=== PATIENT | female | born 1945 | race Caucasian/White ===

== ENCOUNTER 2023-07-10 10:21 | Day surgery (SDC) | payer MEDICARE, OTHER ==
[~2023-07-10] VITALS: Ht 157.5 cm; Wt 63.1 kg
[2023-07-10] VITALS (10 sets, daily range): BP systolic 113–142; BP diastolic 56–87; PULSE 56–78; RESP 16–19; TEMP 97.9; O2SAT 91–98
[2023-07-10] MEDS ORDERED: LORazepam 0.5 MG tablet PO PRN (10:45)
[2023-07-10] MEDS ORDERED: normal saline 1,000 ML IV SCH (10:45)
[2023-07-10] MEDS ORDERED: diphenhydrAMINE 25mg capsule PO PRN (10:45)
[2023-07-10] MEDS ORDERED: nitroGLYCERIN 0.4mg SUBLingual tab SL PRN (10:45)
[2023-07-10] MEDS ORDERED: METO25TA6 PO (11:12)
[2023-07-10] MEDS ORDERED: ASPI-1265 PO (11:12)
[2023-07-10] MEDS ORDERED: ATOR40TA PO (11:12)
[2023-07-10] MEDS ORDERED: LORA-268 (11:12)
[2023-07-10 11:36] LABS: BASOPHILS % (AUTO) 0.7 % (0-1); EOSINOPHILS # (AUTO) 0.1 X10'3 (0-0.9); EOSINOPHILS % (AUTO) 1.4 % (0-6); HEMATOCRIT 44.5 % (35.0-45.0); HEMOGLOBIN 15.1 g/dl (12.0-16.0); LYMPHOCYTES # (AUTO) 1.6 X10'3 (1.1-4.8); LYMPHOCYTES % (AUTO) 26.3 % (21-51); MEAN CORPUSCULAR HEMOGLOBIN 31.3 PG (27.0-31.0); MEAN CORPUSCULAR HGB CONC 33.8 g/dL (33.0-36.5); MEAN CORPUSCULAR VOLUME 92.5 FL (78-98); MEAN PLATELET VOLUME 9.7 FL (7.4-10.4); MONOCYTES # (AUTO) 0.4 X10'3 (0-0.9); NEUTROPHILS % (AUTO) 64.6 % (42-75); PLATELET COUNT 184 X10'3 (140-440); RED BLOOD COUNT 4.81 X10'6 (4.20-5.60); RED CELL DISTRIBUTION WIDTH 13.2 % (11.5-14.5); WHITE BLOOD COUNT 6.1 X10'3 (4.5-11.0)
[2023-07-10] MEDS ORDERED: midazolam 1 mg/ML 2ml injection ONE ×2 (11:36→12:32)
[2023-07-10] MEDS ORDERED: iohexol 350 MG/ML 50ML vial IV ONE (11:37)
[2023-07-10] MEDS ORDERED: LIDOcaine 1% (10mg/ml)w/preservative inj. 20ml MDV ONE (11:37)
[2023-07-10] MEDS ORDERED: fentaNYL/PF 50MCG/1 ML 2ML syringe ONE (11:37)
[2023-07-10] MEDS ORDERED: iohexol 350MG/ML 100ml bottle IV ONE ×2 (11:37→13:01)
[2023-07-10 11:44] LABS: ANION GAP 10 (8-16); BLOOD UREA NITROGEN 11 MG/DL (7-18); BUN/CREATININE RATIO 15.7 (10.0-20.0); CALCIUM 9.4 MG/DL (8.5-10.1); CHLORIDE 103 MMOL/L (99-107); GLUCOSE 92 MG/DL (70-104); SODIUM 139 MMOL/L (135-145); TOTAL CARBON DIOXIDE 25.8 MMOL/L (24-32); eCRCL 53 ML/MIN; eGFR 81 ML/MIN
[2023-07-10 11:49] LABS: APTT 25 SECONDS (22-32); PROTHROMBIN TIME 10.5 SECONDS (9.0-12.0)
[2023-07-10] MEDS ORDERED: proCHLORperazine 10 MG/2 ml inj ONE (12:32)
[2023-07-10 13:32] LABS: ISTAT HGB ART 13.6 g/dl (12.0-16.0); ISTAT Hct ART 40 %PCV (35-45); ISTAT O2 SATURATION ARTERIAL 98 % (95-98); ISTAT SOURCE ART
[2023-07-10] MEDS ORDERED: normal saline 1000ml 1,000 ML IV SCH (14:15)
[2023-07-10] MEDS ORDERED: HYDROcodone/acetaminophen 10/325mg tab PO PRN (14:15)
[2023-07-10] MEDS ORDERED: OXAZEpam 15mg capsule PO PRN (14:15)
[2023-07-10] MEDS ORDERED: ondansetron/PF 4mg/2ml inj IV PRN (14:15)
[2023-07-10] MEDS ORDERED: proCHLORperazine 10 MG/2 ml inj IV PRN (14:15)
[2023-07-10] MEDS ORDERED: HYDROcodone/acetaminophen 5mg/325mg tablet PO PRN (14:15)
[2023-07-10 15:16] LABS: ISTAT HGB MIX 13.6 g/dl (12.0-16.0); ISTAT Hct MIX 40 %PCV (35-45); ISTAT O2 SATURATION MIX VENOUS 77 % (60-80); ISTAT SOURCE VEN
== END 2023-07-10 19:20 | disposition home or self-care (01) ==
LOC: SSTAY O 10:21
PROVIDERS: ATTEND Internal Medicine Cardiovascular Disease
DX: R94.39 Abnormal result of other cardiovascular function study (principal); I25.119 Atherosclerotic heart disease of native coronary artery with unspecified angina pectoris; I35.0 Nonrheumatic aortic (valve) stenosis; I27.20 Pulmonary hypertension, unspecified; I10 Essential (primary) hypertension; G24.3 Spasmodic torticollis; E78.5 Hyperlipidemia, unspecified; J44.9 Chronic obstructive pulmonary disease, unspecified; M35.00 Sjogren syndrome, unspecified; M19.90 Unspecified osteoarthritis, unspecified site; Z90.710 Acquired absence of both cervix and uterus; Z98.41 Cataract extraction status, right eye; Z98.42 Cataract extraction status, left eye; Z87.891 Personal history of nicotine dependence; Z88.2 Allergy status to sulfonamides; Z88.8 Allergy status to other drugs, medicaments and biological substances; Z79.899 Other long term (current) drug therapy; Z79.01 Long term (current) use of anticoagulants; Z95.1 Presence of aortocoronary bypass graft
CPT/HCPCS: 36415; 71045; 80048; 82803; 85014; 85025; 85610; 85730; 93005; 93461; 93567; 99152; 99153; J0780; J1644; J2250; J3010; J3490; J7030; Q0163; Q9967; A6258; C1729; C1751; C1760; C1769

== ENCOUNTER → 2023-08-09 | Outpatient (CLI) | payer MEDICARE, OTHER ==
[~2023-08-09] MED LIST: ASPI-1265 PO; ATOR40TA PO; LORA-268; METO25TA6 PO
== END | disposition home or self-care (01) ==
LOC: CARD DIAG 10:45
PROVIDERS: ATTEND Internal Medicine Cardiovascular Disease
DX: I08.3 Combined rheumatic disorders of mitral, aortic and tricuspid valves (principal); I25.10 Atherosclerotic heart disease of native coronary artery without angina pectoris
CPT/HCPCS: 93306

== ENCOUNTER 2023-08-30 13:05 | Outpatient (CLI) | payer MEDICARE, OTHER ==
[2023-08-30 14:06] LABS: BASOPHILS # (AUTO) 0.1 X10'3 (0-0.2); BASOPHILS % (AUTO) 0.9 % (0-1); EOSINOPHILS # (AUTO) 0.1 X10'3 (0-0.9); EOSINOPHILS % (AUTO) 1.7 % (0-6); HEMATOCRIT 44.3 % (35.0-45.0); HEMOGLOBIN 14.9 g/dl (12.0-16.0); LYMPHOCYTES # (AUTO) 1.9 X10'3 (1.1-4.8); LYMPHOCYTES % (AUTO) 32.3 % (21-51); MEAN CORPUSCULAR HEMOGLOBIN 31.4 PG (27.0-31.0); MEAN CORPUSCULAR HGB CONC 33.7 g/dL (33.0-36.5); MEAN CORPUSCULAR VOLUME 93.2 FL (78-98); MEAN PLATELET VOLUME 8.9 FL (7.4-10.4); MONOCYTES # (AUTO) 0.4 X10'3 (0-0.9); MONOCYTES % (AUTO) 7.3 % (2-12); NEUTROPHILS # (AUTO) 3.4 X10'3 (1.8-7.7); NEUTROPHILS % (AUTO) 57.8 % (42-75); PLATELET COUNT 180 X10'3 (140-440); RED BLOOD COUNT 4.75 X10'6 (4.20-5.60); RED CELL DISTRIBUTION WIDTH 13.5 % (11.5-14.5); WHITE BLOOD COUNT 5.8 X10'3 (4.5-11.0)
[2023-08-30 14:12] LABS: APTT 26 SECONDS (22-32); PROTHROMBIN TIME 10.6 SECONDS (9.0-12.0)
[2023-08-30 14:14] LABS: ALANINE AMINOTRANSFERASE 48 U/L (12-78); ALBUMIN 3.7 G/DL (3.4-5.0); ALBUMIN/GLOBULIN RATIO 0.9 (1.1-1.5); ALKALINE PHOSPHATASE 63 IU/L (46-116); ANION GAP 6 (8-16); ASPARTATE AMINO TRANSFERASE 38 U/L (10-37); BILIRUBIN,TOTAL 0.5 MG/DL (0.1-1.0); BLOOD UREA NITROGEN 19 MG/DL (7-18); BUN/CREATININE RATIO 24.1 (10.0-20.0); CALCIUM 9.2 MG/DL (8.5-10.1); CHLORIDE 105 MMOL/L (99-107); CREATININE 0.79 MG/DL (0.40-0.90); GLUCOSE 102 MG/DL (70-104); POTASSIUM 4.1 MMOL/L (3.5-5.1); SODIUM 140 MMOL/L (135-145); eGFR 71 ML/MIN
[2023-08-30 14:22] LABS: PRO BRAIN NATRIURETIC PEPTIDE 335 PG/ML (0-450)
[2023-08-30] MEDS ORDERED: IODIXANOL 320 MG/ML INFUS..BTL 100ML IV ONE (14:24)
== END 2023-08-30 23:59 | disposition home or self-care (01) ==
LOC: RAD 13:05
PROVIDERS: ATTEND Internal Medicine Cardiovascular Disease
DX: K44.9 Diaphragmatic hernia without obstruction or gangrene (principal); I35.0 Nonrheumatic aortic (valve) stenosis; R06.02 Shortness of breath; I70.0 Atherosclerosis of aorta; I51.7 Cardiomegaly; Z95.1 Presence of aortocoronary bypass graft; J98.4 Other disorders of lung; K76.89 Other specified diseases of liver; K57.30 Diverticulosis of large intestine without perforation or abscess without bleeding; M47.819 Spondylosis without myelopathy or radiculopathy, site unspecified; J47.9 Bronchiectasis, uncomplicated; I65.23 Occlusion and stenosis of bilateral carotid arteries; Z90.49 Acquired absence of other specified parts of digestive tract
CPT/HCPCS: 36415; 71275; 74174; 75572; 80053; 83880; 85025; 85610; 85730; 93880; 94010; 94727; 94729; J3490; Q9967

== ENCOUNTER 2024-01-03 06:49 | Inpatient (IN) | payer MEDICARE, OTHER ==
[2024-01-02 10:20] LABS: BILIRUBIN,URINE NEGATIVE (Neg); CLARITY,URINE CLEAR (Clear); COLOR,URINE YELLOW (Yellow); GLUCOSE, URINE NEGATIVE (Neg); KETONES,URINE NEGATIVE (Neg); LEUKOCYTE ESTERASE ,URINE NEGATIVE (Neg); NITRITES, URINE NEGATIVE (Neg); OCCULT BLOOD,URINE TRACE-INTACT (Neg); PH,URINE 5.5 (4.8-8.0); PROTEIN,URINE NEGATIVE (Neg); UROBILINOGEN,URINE 0.2 E.U/dL (0.2-1.0)
[2024-01-02 10:21] LABS: UA COLLECTION TYPE CLN CATCH MIDSTREAM
[2024-01-02 10:28] LABS: BASOPHILS % (AUTO) 0.6 % (0-1); EOSINOPHILS # (AUTO) 0.1 X10'3 (0-0.9); EOSINOPHILS % (AUTO) 2.1 % (0-6); LYMPHOCYTES # (AUTO) 1.4 X10'3 (1.1-4.8); LYMPHOCYTES % (AUTO) 22.1 % (21-51); MEAN CORPUSCULAR HEMOGLOBIN 30.6 PG (27.0-31.0); MEAN CORPUSCULAR HGB CONC 33.1 g/dL (33.0-36.5); MEAN CORPUSCULAR VOLUME 92.3 FL (78-98); MEAN PLATELET VOLUME 9.3 FL (7.4-10.4); MONOCYTES # (AUTO) 0.5 X10'3 (0-0.9); MONOCYTES % (AUTO) 7.3 % (2-12); NEUTROPHILS # (AUTO) 4.3 X10'3 (1.8-7.7); NEUTROPHILS % (AUTO) 67.9 % (42-75); PRE OP HEMATOCRIT 43.3 % (35.0-45.0); PRE OP HEMOGLOBIN 14.3 g/dL (12.0-16.0); PRE OP PLATELET COUNT 157 X10'3 (140-440); PRE OP WHITE BLOOD COUNT 6.4 10'3 (4.8-10.8); RED BLOOD COUNT 4.69 X10'6 (4.20-5.60); RED CELL DISTRIBUTION WIDTH 14.3 % (11.5-14.5)
[2024-01-02 10:34] LABS: PRE OP PROTIME 10.4 SECONDS (9.0-12.0)
[2024-01-02 10:39] LABS: ALBUMIN 3.6 G/DL (3.4-5.0); ALBUMIN/GLOBULIN RATIO 0.9 (1.1-1.5); ALKALINE PHOSPHATASE 64 IU/L (46-116); BLOOD UREA NITROGEN 16 MG/DL (7-18); BUN/CREATININE RATIO 21.1 (10.0-20.0); CALCIUM 8.9 MG/DL (8.5-10.1); CHLORIDE 105 MMOL/L (99-107); CREATININE 0.76 MG/DL (0.40-0.90); PRE OP ALT 37 U/L (30-65); PRE OP ANION GAP 7 (8-16); PRE OP AST 32 U/L (10-37); PRE OP BILIRUB, TOTAL 0.5 MG/DL (0.0-1.0); PRE OP GLUCOSE 100 MG/DL (70-104); PRE OP POTASSIUM 3.9 MMOL/L (3.4-5.1); PRE OP SODIUM 139 MMOL/L (135-145); TOTAL CARBON DIOXIDE 27.3 MMOL/L (24-32); TOTAL PROTEIN 7.8 G/DL (6.4-8.2); eGFR 74 ML/MIN
[2024-01-02 10:45] LABS: BACTERIA,URINE FEW /HPF (Neg); SQUAMOUS EPITHELIAL CELL,UR FEW /LPF (FEW)
[2024-01-02 10:50] LABS: RBC,URINE 0-2 /HPF (0-2); WBC,URINE 0-4 /HPF (0-4)
[2024-01-02 13:19] LABS: THYROID STIMULATING HORMONE 1.19 ulU/ml (0.34-4.50)
[2024-01-03] VITALS (12 sets, daily range): BP systolic 118–146; BP diastolic 58–73; PULSE 60–96; RESP 12–26; TEMP 97.4; O2SAT 96–100
[~2024-01-03] VITALS: Ht 157.5 cm; Wt 66.2 kg
[2024-01-03] MEDS: cefazolin 2gm/D5W 100mL 100 ML IV ONE (05:30)
[~2024-01-03 06:49] MED LIST changes: +ASPI-1071 PO; -ASPI-1265 PO; -LORA-268
[2024-01-03] MEDS ORDERED: iohexol 300mg/ml 100ml inj. ONE (07:07)
[2024-01-03] MEDS: famotidine 20mg tablet PO ONE (08:47)
[2024-01-03] MEDS: ringers solution, lacted 1,000 ML IV SCH (08:47)
[2024-01-03] MEDS ORDERED: GADOTERATE MEGLUMINE 7.5 MMOL/15 ML VIAL IV ONE (12:42)
[2024-01-03] MEDS ORDERED: fentaNYL /PF 50mcg/ml 5ml ampule ONE (14:33)
[2024-01-03] MEDS ORDERED: midazolam 1 mg/ML 2ml injection ONE ×2 (14:33→14:52)
[2024-01-03] MEDS ORDERED: propofol inj 20 ML IV ONE (14:34)
[2024-01-03] MEDS: BUPIVAcaine/PF 2.5 mg/ml (0.25%) 30ml vial IJ ONE (15:09)
[2024-01-03] MEDS ORDERED: ePHEDrine 50MG/ML INJ. ONE (16:38)
[2024-01-03] MEDS ORDERED: rocuronium 10mg/ml inj IV ONE ×2 (16:38)
[2024-01-03] MEDS ORDERED: morphine 2 MG/ML inj. syringe IV PRN (17:20)
[2024-01-03] MEDS ORDERED: ondansetron/PF 4mg/2ml inj IV PRN (17:20)
[2024-01-03] MEDS ORDERED: proCHLORperazine 10 MG/2 ml inj IV PRN (17:20)
[2024-01-03] MEDS ORDERED: ringers solution, lacted 1,000 ML IV SCH (17:20)
[2024-01-03] MEDS ORDERED: meperidine/PF 25mg/ml syringe IV PRN ×2 (17:20)
[2024-01-03] MEDS ORDERED: morphine 4 MG/ML inj SYRINge IV PRN (17:20)
[2024-01-03] MEDS ORDERED: acetaminophen 1,000mg/100ml IV 100 ML IV ONE (17:39)
[2024-01-03] MEDS ORDERED: neostigmine methylsulfate 1 MG/ML 10ml vial ONE (17:57)
[2024-01-03] MEDS ORDERED: glycopyrrolate 0.2mg/ml inj ONE (17:57)
[2024-01-03] MEDS ORDERED: HYDROcodone/acetaminophen 10/325mg tab PO PRN (18:30)
[2024-01-03] MEDS ORDERED: albuterol 2.5 MG/3 ML nebule NEB PRN (18:30)
[2024-01-03] MEDS ORDERED: metoclopramide 5 mg/ml inj IV PRN (18:30)
[2024-01-03 18:54] LABS: ABG BASE EXCESS -2.7 mmol/L (-2.0-2.0); ABG HCO3 21.8 mmol/L (22.0-26.0); ABG OXYGEN SATURATION 96.2 % (94-97); ABG PCO2 (T) 35.9 mmHg (32.0-45.0); ABG PH (T) 7.398 (7.350-7.450); ABG PO2 (T) 78.3 mmHg (75.0-100.0); FCOHb 0.5 % (0.0-3.9); FHHb 3.8 % (0.0-5.0); FLOW 2 L/min; FMetHb 0.3 % (0.0-1.5); FO2Hb 95.4 % (94-97); MODE NASAL CANNULA; PATIENT TEMPERATURE 36.1; TOTAL HEMOGLOBIN 13.6 G/dl (12.0-16.0)
[2024-01-03] MEDS: meperidine/PF 25mg/ml syringe IV PRN (19:02)
[2024-01-03] MEDS: BUPIVACAINE liposomal/PF 13.3 MG/ML vial IM ONE (19:51)
[2024-01-03] MEDS: BUPIVAcaine 2.5mg/ml inj 50ml vial (contains preservative) ONE (19:51)
[2024-01-03] MEDS: DOCUMENT DATE & TIME OF BETA-BLOCKER PO ONE (19:51)
[2024-01-03] MEDS: potassium cl 20mEq in 1/2 NS 1,000 ML IV SCH (19:54)
[2024-01-03] MEDS: ketorolac trometh. 30mg/ml inj. IV SCH (19:54)
[2024-01-03] MEDS: morphine 4 MG/ML inj SYRINge IV PRN (20:31)
[2024-01-04] VITALS (22 sets, daily range): BP systolic 96–140; BP diastolic 46–67; PULSE 71–94; RESP 12–25; O2SAT 92–98
[2024-01-04] MEDS: ceFAZolin inj. 1,000 MG in dextrose 5%-water 50ml 50 ML IV SCH (00:14)
[2024-01-04 01:52] LABS: ALANINE AMINOTRANSFERASE 37 U/L (12-78); ALBUMIN/GLOBULIN RATIO 0.9 (1.1-1.5); ALKALINE PHOSPHATASE 56 IU/L (46-116); ANION GAP 9 (8-16); ASPARTATE AMINO TRANSFERASE 35 U/L (10-37); BILIRUBIN,TOTAL 0.8 MG/DL (0.1-1.0); BLOOD UREA NITROGEN 10 MG/DL (7-18); BUN/CREATININE RATIO 15.9 (10.0-20.0); CALCIUM 8.4 MG/DL (8.5-10.1); CHLORIDE 102 MMOL/L (99-107); CREATININE 0.63 MG/DL (0.40-0.90); GLUCOSE 160 MG/DL (70-104); MAGNESIUM 1.8 MG/DL (1.5-2.4); PHOSPHORUS 4.5 MG/DL (2.3-4.5); SODIUM 136 MMOL/L (135-145); TOTAL PROTEIN 6.5 G/DL (6.4-8.2); eCRCL 58 ML/MIN; eGFR > 90 ML/MIN
[2024-01-04 02:00] LABS: BASOPHILS % (AUTO) 0.2 % (0-1); EOSINOPHILS % (AUTO) 0 % (0-6); HEMOGLOBIN 12.2 g/dl (12.0-16.0); LYMPHOCYTES # (AUTO) 0.6 X10'3 (1.1-4.8); LYMPHOCYTES % (AUTO) 4.1 % (21-51); MEAN CORPUSCULAR HEMOGLOBIN 30.3 PG (27.0-31.0); MEAN CORPUSCULAR HGB CONC 32.9 g/dL (33.0-36.5); MEAN CORPUSCULAR VOLUME 91.9 FL (78-98); MEAN PLATELET VOLUME 8.9 FL (7.4-10.4); MONOCYTES # (AUTO) 0.6 X10'3 (0-0.9); MONOCYTES % (AUTO) 4.4 % (2-12); NEUTROPHILS # (AUTO) 12.4 X10'3 (1.8-7.7); NEUTROPHILS % (AUTO) 91.3 % (42-75); PLATELET COUNT 120 X10'3 (140-440); RED BLOOD COUNT 4.02 X10'6 (4.20-5.60); RED CELL DISTRIBUTION WIDTH 13.9 % (11.5-14.5); WHITE BLOOD COUNT 13.6 X10'3 (4.5-11.0)
[2024-01-04] MEDS: ondansetron/PF 4mg/2ml inj IV PRN (05:31)
[2024-01-04] MEDS ORDERED: atorvastatin 20mg tablet PO SCH (09:19)
[2024-01-04] MEDS ORDERED: HALLS - SOOTHE MENTHOL 1.8 MG cough drop LOZENGE MM PRN (09:25)
[2024-01-04] MEDS ORDERED: benzocaine/menthol oral lozeng 1 EACH BOX MM PRN (09:25)
[2024-01-04] MEDS: aspirin 81mg, enteric-coated 1 TAB TABLET.DR PO SCH (09:37)
[2024-01-04] MEDS: metoprolol tartrate 12.5mg (1/2 tablet) PO SCH (09:37)
[2024-01-04] MEDS: HALLS - SOOTHE MENTHOL 1.8 MG cough drop LOZENGE MM PRN (12:13)
[2024-01-04] MEDS: gabapentin 300mg capsule PO SCH (12:13)
[2024-01-04] MEDS: HYDROcodone/acetaminophen 10/325mg tab PO PRN (14:18)
[2024-01-04] MEDS: atorvastatin 20mg tablet PO SCH (19:39)
[2024-01-05] VITALS (20 sets, daily range): BP systolic 91–132; BP diastolic 42–147; PULSE 63–78; RESP 15–20; TEMP 97.5–99; O2SAT 93–99
[2024-01-05 03:36] LABS: BASOPHILS % (AUTO) 0.4 % (0-1); EOSINOPHILS # (AUTO) 0.1 X10'3 (0-0.9); EOSINOPHILS % (AUTO) 1.4 % (0-6); HEMATOCRIT 33.2 % (35.0-45.0); LYMPHOCYTES # (AUTO) 1.3 X10'3 (1.1-4.8); LYMPHOCYTES % (AUTO) 15.6 % (21-51); MEAN CORPUSCULAR HGB CONC 33.3 g/dL (33.0-36.5); MEAN CORPUSCULAR VOLUME 93.1 FL (78-98); MEAN PLATELET VOLUME 9.4 FL (7.4-10.4); MONOCYTES # (AUTO) 0.5 X10'3 (0-0.9); MONOCYTES % (AUTO) 6.3 % (2-12); NEUTROPHILS # (AUTO) 6.2 X10'3 (1.8-7.7); NEUTROPHILS % (AUTO) 76.3 % (42-75); PLATELET COUNT 113 X10'3 (140-440); RED BLOOD COUNT 3.57 X10'6 (4.20-5.60); WHITE BLOOD COUNT 8.1 X10'3 (4.5-11.0)
[2024-01-05 03:53] LABS: ALANINE AMINOTRANSFERASE 27 U/L (12-78); ALBUMIN 2.5 G/DL (3.4-5.0); ALBUMIN/GLOBULIN RATIO 0.7 (1.1-1.5); ALKALINE PHOSPHATASE 46 IU/L (46-116); ANION GAP 4 (8-16); ASPARTATE AMINO TRANSFERASE 31 U/L (10-37); BILIRUBIN,TOTAL 0.6 MG/DL (0.1-1.0); BLOOD UREA NITROGEN 14 MG/DL (7-18); BUN/CREATININE RATIO 23.3 (10.0-20.0); CALCIUM 8.4 MG/DL (8.5-10.1); CHLORIDE 105 MMOL/L (99-107); GLUCOSE 105 MG/DL (70-104); PHOSPHORUS 3.3 MG/DL (2.3-4.5); POTASSIUM 4.2 MMOL/L (3.5-5.1); SODIUM 137 MMOL/L (135-145); TOTAL CARBON DIOXIDE 27.8 MMOL/L (24-32); eCRCL 61 ML/MIN; eGFR > 90 ML/MIN
[2024-01-05] MEDS: morphine 2 MG/ML inj. syringe IV PRN (13:55)
[2024-01-05] MEDS: enoxaparin 40mg/0.4ml syringe SUBCUT SCH (19:21)
[2024-01-06] VITALS (9 sets, daily range): BP systolic 106–135; BP diastolic 54–77; PULSE 69–112; RESP 16–22; TEMP 97.3–98.9; O2SAT 91–98
[2024-01-06 06:05] LABS: BASOPHILS % (AUTO) 0.2 % (0-1); EOSINOPHILS # (AUTO) 0.1 X10'3 (0-0.9); EOSINOPHILS % (AUTO) 2.1 % (0-6); MONOCYTES # (AUTO) 0.3 X10'3 (0-0.9); PLATELET COUNT 155 X10'3 (140-440)
[2024-01-06 06:07] LABS: HEMATOCRIT 36.8 % (35.0-45.0); HEMOGLOBIN 12.2 g/dl (12.0-16.0); LYMPHOCYTES # (AUTO) 1.3 X10'3 (1.1-4.8); LYMPHOCYTES % (AUTO) 20.3 % (21-51); MEAN CORPUSCULAR HEMOGLOBIN 30.8 PG (27.0-31.0); MEAN CORPUSCULAR HGB CONC 33.3 g/dL (33.0-36.5); MEAN CORPUSCULAR VOLUME 92.6 FL (78-98); MONOCYTES % (AUTO) 4.8 % (2-12); NEUTROPHILS # (AUTO) 4.7 X10'3 (1.8-7.7); NEUTROPHILS % (AUTO) 72.6 % (42-75); RED BLOOD COUNT 3.97 X10'6 (4.20-5.60); WHITE BLOOD COUNT 6.5 X10'3 (4.5-11.0)
[2024-01-06 06:16] LABS: ALANINE AMINOTRANSFERASE 25 U/L (12-78); ALBUMIN 2.9 G/DL (3.4-5.0); ALBUMIN/GLOBULIN RATIO 0.7 (1.1-1.5); ALKALINE PHOSPHATASE 56 IU/L (46-116); ANION GAP 7 (8-16); ASPARTATE AMINO TRANSFERASE 33 U/L (10-37); BILIRUBIN,TOTAL 0.6 MG/DL (0.1-1.0); BLOOD UREA NITROGEN 22 MG/DL (7-18); CALCIUM 8.7 MG/DL (8.5-10.1); CHLORIDE 103 MMOL/L (99-107); CREATININE 0.88 MG/DL (0.40-0.90); GLUCOSE 103 MG/DL (70-104); MAGNESIUM 2.1 MG/DL (1.5-2.4); PHOSPHORUS 3.6 MG/DL (2.3-4.5); POTASSIUM 4.4 MMOL/L (3.5-5.1); SODIUM 136 MMOL/L (135-145); TOTAL CARBON DIOXIDE 25.6 MMOL/L (24-32); TOTAL PROTEIN 6.9 G/DL (6.4-8.2); eCRCL 42 ML/MIN; eGFR 62 ML/MIN
[2024-01-06 08:37] LABS: ABG BASE EXCESS -3.7 mmol/L (-2.0-2.0); ABG HCO3 18.9 mmol/L (22.0-26.0); ABG OXYGEN SATURATION 97.7 % (94-97); ABG PCO2 (T) 29.9 mmHg (32.0-45.0); ABG PH (T) 7.424 (7.350-7.450); ABG PO2 (T) 105.2 mmHg (75.0-100.0); ALLEN'S TEST POSITIVE; FHHb 2.3 % (0.0-5.0); FMetHb 0.1 % (0.0-1.5); FO2Hb 97.6 % (94-97); MODE ROOM AIR; TOTAL HEMOGLOBIN 14.9 G/dl (12.0-16.0)
[2024-01-07] VITALS (8 sets, daily range): BP systolic 120–147; BP diastolic 66–80; PULSE 64–91; RESP 14–18; TEMP 97.1–98.3; O2SAT 94–97
[2024-01-07 07:24] LABS: BASOPHILS % (AUTO) 0.5 % (0-1); EOSINOPHILS # (AUTO) 0.3 X10'3 (0-0.9); EOSINOPHILS % (AUTO) 5.7 % (0-6); HEMATOCRIT 34.5 % (35.0-45.0); HEMOGLOBIN 11.4 g/dl (12.0-16.0); LYMPHOCYTES # (AUTO) 1.5 X10'3 (1.1-4.8); LYMPHOCYTES % (AUTO) 27.8 % (21-51); MEAN CORPUSCULAR HEMOGLOBIN 30.7 PG (27.0-31.0); MEAN CORPUSCULAR HGB CONC 33.1 g/dL (33.0-36.5); MEAN CORPUSCULAR VOLUME 92.8 FL (78-98); MONOCYTES # (AUTO) 0.4 X10'3 (0-0.9); MONOCYTES % (AUTO) 7.4 % (2-12); NEUTROPHILS # (AUTO) 3.2 X10'3 (1.8-7.7); NEUTROPHILS % (AUTO) 58.6 % (42-75); PLATELET COUNT 154 X10'3 (140-440); RED BLOOD COUNT 3.72 X10'6 (4.20-5.60); RED CELL DISTRIBUTION WIDTH 13.9 % (11.5-14.5); WHITE BLOOD COUNT 5.5 X10'3 (4.5-11.0)
[2024-01-07 07:37] LABS: ALANINE AMINOTRANSFERASE 24 U/L (12-78); ALBUMIN 2.6 G/DL (3.4-5.0); ALBUMIN/GLOBULIN RATIO 0.7 (1.1-1.5); ALKALINE PHOSPHATASE 48 IU/L (46-116); ANION GAP 5 (8-16); ASPARTATE AMINO TRANSFERASE 45 U/L (10-37); BILIRUBIN,TOTAL 0.7 MG/DL (0.1-1.0); BLOOD UREA NITROGEN 16 MG/DL (7-18); BUN/CREATININE RATIO 23.2 (10.0-20.0); CALCIUM 8.4 MG/DL (8.5-10.1); CHLORIDE 108 MMOL/L (99-107); CREATININE 0.69 MG/DL (0.40-0.90); GLUCOSE 97 MG/DL (70-104); MAGNESIUM 2.1 MG/DL (1.5-2.4); PHOSPHORUS 3.2 MG/DL (2.3-4.5); POTASSIUM 4.1 MMOL/L (3.5-5.1); SODIUM 141 MMOL/L (135-145); TOTAL CARBON DIOXIDE 27.7 MMOL/L (24-32); TOTAL PROTEIN 6.3 G/DL (6.4-8.2); eCRCL 53 ML/MIN; eGFR 82 ML/MIN
[2024-01-07] MEDS: gabapentin 300mg capsule PO SCH (09:01)
[2024-01-07] MEDS: magnesium hydroxide 30ml (MOM) UD suspension PO ONE (12:01)
[2024-01-08 08:00] VITALS: RESP 21; O2SAT 100
[2024-01-08 08:00] LABS: BASOPHILS % (AUTO) 0.5 % (0-1); EOSINOPHILS # (AUTO) 0.3 X10'3 (0-0.9); EOSINOPHILS % (AUTO) 4.7 % (0-6); HEMOGLOBIN 12.7 g/dl (12.0-16.0); LYMPHOCYTES # (AUTO) 1.8 X10'3 (1.1-4.8); LYMPHOCYTES % (AUTO) 27.4 % (21-51); MEAN CORPUSCULAR HEMOGLOBIN 30.7 PG (27.0-31.0); MEAN CORPUSCULAR HGB CONC 33.4 g/dL (33.0-36.5); MEAN CORPUSCULAR VOLUME 91.9 FL (78-98); MEAN PLATELET VOLUME 9.1 FL (7.4-10.4); MONOCYTES # (AUTO) 0.4 X10'3 (0-0.9); MONOCYTES % (AUTO) 6.8 % (2-12); NEUTROPHILS # (AUTO) 3.9 X10'3 (1.8-7.7); NEUTROPHILS % (AUTO) 60.6 % (42-75); PLATELET COUNT 195 X10'3 (140-440); RED BLOOD COUNT 4.13 X10'6 (4.20-5.60); RED CELL DISTRIBUTION WIDTH 13.7 % (11.5-14.5); WHITE BLOOD COUNT 6.5 X10'3 (4.5-11.0)
[2024-01-08 08:44] LABS: ALANINE AMINOTRANSFERASE 25 U/L (12-78); ALBUMIN/GLOBULIN RATIO 0.7 (1.1-1.5); ALKALINE PHOSPHATASE 59 IU/L (46-116); ANION GAP 9 (8-16); ASPARTATE AMINO TRANSFERASE 31 U/L (10-37); BILIRUBIN,TOTAL 0.7 MG/DL (0.1-1.0); BLOOD UREA NITROGEN 15 MG/DL (7-18); BUN/CREATININE RATIO 19.7 (10.0-20.0); CALCIUM 9.1 MG/DL (8.5-10.1); CHLORIDE 105 MMOL/L (99-107); CREATININE 0.76 MG/DL (0.40-0.90); GLUCOSE 101 MG/DL (70-104); MAGNESIUM 2.2 MG/DL (1.5-2.4); POTASSIUM 3.9 MMOL/L (3.5-5.1); SODIUM 141 MMOL/L (135-145); TOTAL CARBON DIOXIDE 26.8 MMOL/L (24-32); TOTAL PROTEIN 7.2 G/DL (6.4-8.2); eCRCL 48 ML/MIN; eGFR 74 ML/MIN
[2024-01-08 14:54] VITALS: PULSE 74; RESP 16; O2SAT 95
[2024-01-08 15:00] VITALS: BP 152/76; PULSE 82; RESP 18; TEMP 98.2; O2SAT 96
[2024-01-08] MEDS ORDERED: HYDR-3972 PO (16:36)
[2024-01-08] MEDS ORDERED: lactose-reduced food (Ensure Enlive) - 237ml bottle PO SCH (17:30)
[2024-01-08 17:37] VITALS: RESP 12
== END 2024-01-08 17:56 | disposition home or self-care (01) | DRG 165 ==
LOC: PAS IN 06:49 → UNDOADMIN 06:49 → PAS IN 18:31 → CICU 2S 19:25 → PCU 3S 01-05 16:26
PROVIDERS: ADMIT Surgery; ATTEND Surgery
PROC: 07B74ZZ Excision of Thorax Lymphatic, Percutaneous Endoscopic Approach (ICD-10-PCS; 2024-01-03)
PROC: 8E0W4CZ Robotic Assisted Procedure of Trunk Region, Percutaneous Endoscopic Approach (ICD-10-PCS; 2024-01-03)
PROC: 0BNC4ZZ Release Right Upper Lung Lobe, Percutaneous Endoscopic Approach (ICD-10-PCS; 2024-01-03)
PROC: 0W9930Z Drainage of Right Pleural Cavity with Drainage Device, Percutaneous Approach (ICD-10-PCS; 2024-01-03)
PROC: BW281ZZ Computerized Tomography (CT Scan) of Head using Low Osmolar Contrast (ICD-10-PCS; 2024-01-03)
PROC: 0BTF4ZZ Resection of Right Lower Lung Lobe, Percutaneous Endoscopic Approach (ICD-10-PCS; principal; 2024-01-03 14:44)
DX: C34.31 Malignant neoplasm of lower lobe, right bronchus or lung (principal); J98.4 Other disorders of lung; I10 Essential (primary) hypertension; I25.10 Atherosclerotic heart disease of native coronary artery without angina pectoris; Z95.1 Presence of aortocoronary bypass graft; Z88.1 Allergy status to other antibiotic agents; Z88.2 Allergy status to sulfonamides; Z88.8 Allergy status to other drugs, medicaments and biological substances
CPT/HCPCS: 36415; 36600; 70470; 70553; 71045; 80053; 81001; 82803; 82948; 83735; 84100; 84443; 85018; 85025; 85610; 85730; 86885; 86900; 86901; 87081; 88305; 88309; 88331; 92508; 92616; 94668; 94760; 97110; 97116; 97161; 97530; A4618; A6223; A6250; A6258; A6402; A6449; A7000; A7048; A9575; C1758; C1894; C9250; C9290; G0378; J0131; J0690; J1650; J1885; J2175; J2250; J2270; J2405; J2704; J2710; J3010; J3480; J3490; J7060; J7120; Q9967

== ENCOUNTER 2024-01-21 16:25 | Emergency (ER) | payer MEDICARE ==
[~2024-01-21] VITALS: Ht 157.5 cm; Wt 60.0 kg
[~2024-01-21 16:25] MED LIST changes: +HYDR-3972 PO
[2024-01-21 17:43] LABS: BASOPHILS % (AUTO) 0.9 % (0-1); EOSINOPHILS # (AUTO) 0.1 X10'3 (0-0.9); EOSINOPHILS % (AUTO) 1.7 % (0-6); HEMATOCRIT 40.8 % (35.0-45.0); HEMOGLOBIN 13.5 g/dl (12.0-16.0); LYMPHOCYTES # (AUTO) 0.7 X10'3 (1.1-4.8); LYMPHOCYTES % (AUTO) 13.8 % (21-51); MEAN CORPUSCULAR HEMOGLOBIN 30.6 PG (27.0-31.0); MEAN CORPUSCULAR VOLUME 92.9 FL (78-98); MEAN PLATELET VOLUME 8.5 FL (7.4-10.4); MONOCYTES # (AUTO) 0.8 X10'3 (0-0.9); MONOCYTES % (AUTO) 14.9 % (2-12); NEUTROPHILS # (AUTO) 3.6 X10'3 (1.8-7.7); NEUTROPHILS % (AUTO) 68.7 % (42-75); PLATELET COUNT 203 X10'3 (140-440); RED BLOOD COUNT 4.39 X10'6 (4.20-5.60); RED CELL DISTRIBUTION WIDTH 14.7 % (11.5-14.5); WHITE BLOOD COUNT 5.2 X10'3 (4.5-11.0)
[2024-01-21 17:50] LABS: ALBUMIN 3.4 G/DL (3.4-5.0); ANION GAP 11 (8-16); BLOOD UREA NITROGEN 22 MG/DL (7-18); BUN/CREATININE RATIO 28.2 (10.0-20.0); CALCIUM 9.1 MG/DL (8.5-10.1); CHLORIDE 101 MMOL/L (99-107); CREATININE 0.78 MG/DL (0.40-0.90); GLUCOSE 117 MG/DL (70-104); POTASSIUM 3.8 MMOL/L (3.5-5.1); SODIUM 136 MMOL/L (135-145); TOTAL CARBON DIOXIDE 23.9 MMOL/L (24-32); eCRCL 47 ML/MIN; eGFR 71 ML/MIN
[2024-01-21 18:04] VITALS: TEMP 98.2
[2024-01-21 18:24] LABS: ALANINE AMINOTRANSFERASE 48 U/L (12-78); ALBUMIN 3.4 G/DL (3.4-5.0); ALBUMIN/GLOBULIN RATIO 0.8 (1.1-1.5); ALKALINE PHOSPHATASE 76 IU/L (46-116); ANION GAP 12 (8-16); ASPARTATE AMINO TRANSFERASE 45 U/L (10-37); BILIRUBIN,TOTAL 0.5 MG/DL (0.1-1.0); BLOOD UREA NITROGEN 21 MG/DL (7-18); BUN/CREATININE RATIO 26.9 (10.0-20.0); CALCIUM 9.1 MG/DL (8.5-10.1); CHLORIDE 103 MMOL/L (99-107); CREATININE 0.78 MG/DL (0.40-0.90); GLUCOSE 117 MG/DL (70-104); POTASSIUM 3.9 MMOL/L (3.5-5.1); SODIUM 139 MMOL/L (135-145); TOTAL PROTEIN 7.8 G/DL (6.4-8.2); eCRCL 47 ML/MIN; eGFR 71 ML/MIN
[2024-01-21 18:27] LABS: C-REACTIVE PROTEIN 1.03 MG/DL (0.0-0.5)
[2024-01-21 18:37] LABS: APTT 26 SECONDS (22-32); PROTHROMBIN TIME 11.1 SECONDS (9.0-12.0)
[2024-01-21 19:45] VITALS: BP 141/77; PULSE 84; RESP 24; O2SAT 96
== END 2024-01-21 20:05 | disposition home or self-care (01) ==
LOC: ER 16:27
DX: J90 Pleural effusion, not elsewhere classified (principal); Z88.1 Allergy status to other antibiotic agents; Z88.2 Allergy status to sulfonamides; Z88.8 Allergy status to other drugs, medicaments and biological substances; Z79.82 Long term (current) use of aspirin; Z79.899 Other long term (current) drug therapy
CPT/HCPCS: 36415; 71046; 71250; 80048; 80053; 83605; 84145; 84484; 85025; 85610; 85651; 85730; 86140; 87040; 93005; 99285

== ENCOUNTER 2025-04-01 00:56 | Emergency (ER) | payer MEDICARE, OTHER ==
[~2025-04-01] VITALS: Ht 157.5 cm; Wt 63.6 kg
[~2025-04-01 00:56] MED LIST changes: -HYDR-3972 PO
[2025-04-01 00:58] VITALS: TEMP 98.6
[2025-04-01 02:37] LABS: CREATININE 0.88 MG/DL (0.40-0.90); TOTAL CARBON DIOXIDE 22.9 MMOL/L (24-32); eCRCL 41 ML/MIN; eGFR 62 ML/MIN
--- NOTE | 2025-04-01 02:41 | Physician Documentation ---
History of Present Illness ~ Chief Complaint: Urinary Symptoms Stated Complaint: POSS UTI Time Seen by MD: 02:41 Primary Medical Doctor: Dr. Shepard HPI Patient presents to the emergency room with dysuria that began today. No prior urinary tract infections. No fevers. Patient also endorses some right-sided flank pain. Medication Reconciliation Allergies: Coded Allergies: Sulfa (Sulfonamide Antibiotics) (Verified Allergy, Unknown, RASH, 04/01/25) ciprofloxacin (Verified Allergy, Unknown, 04/01/25) dexamethasone (Verified Allergy, Unknown, 04/01/25) naloxone (Verified Allergy, Unknown, 04/01/25) neomycin (Verified Allergy, Unknown, 04/01/25) nickel (Verified Allergy, Unknown, RASH, 04/01/25) polymyxin B (Verified Allergy, Unknown, 07/10/23) adhesive (Verified Adverse Reaction, Unknown, RASH, 10/09/23) Uncoded Allergies: TRIMOXAZOLE (Allergy, Unknown, 10/09/23) Scheduled Aspirin (Ecotrin*), 1 TAB PO DAILY, (Reported) Atorvastatin Calcium* (Lipitor*), 1 TAB PO HS, (Reported) Metoprolol Tartrate (Metoprolol Tartrate), 1 TAB PO BID, (Reported) Review of Systems ROS All review of systems negative except as per HPI Physical Exam Vital Signs: Temperature: 98.6, Source: Temporal, Heart Rate: 102, Respiratory Rate: 16, BP: 176/91, Pulse Oximetry: 97, Weight: 63.640 Oxygen Flow Rate: 0 Physical Exam General: Patient is awake, alert, oriented x4 in no acute distress Head: Normocephalic and atraumatic. Eyes: Conjunctival normal. EOMI. PERRL. ENT: Mucous membranes moist. Neck: Supple, trachea is midline. Chest: Clear to auscultation bilaterally without rales, rhonchi, or wheezes. There is no accessory muscle use or retractions. Cardiac: RRR without murmurs, gallops, or rubs. Abd: Soft, nondistended, nontender, with normoactive bowel sounds. No guarding, rebound, or rigidity. Progress Results/Orders Results/Orders Orders - CHEPE CHA MD Cult Urine + [address] (04/01/25 03:16) Completed Orders - CHEPE CHA MD BMP (04/01/25 01:02) Lipase (8/28/25 01:02) CMP (04/01/25 01:02) Cbc/Diff (04/01/25 02:47) Ua W/Microscopic, Cult If Ind (04/01/25 02:30) Vital Signs 04/01/25 00:58 Temp 98.6 Pulse 102 Resp 16 B/P (MAP) 176/91 Pulse Ox 97 O2 Flow Rate 0 Laboratory Tests Test 04/01/25 01:26 04/01/25 02:23 04/01/25 02:30 04/01/25 03:20 CBC Comment Sodium Level 138 Potassium Level 4.1 Chloride Level 105 Carbon Dioxide Level 22.9 L Anion Gap 10 Blood Urea Nitrogen 20 H Creatinine 0.88 Estimated GFR/1.73 m2 62 BUN/Creatinine Ratio 22.7 H Glucose Level 130 H Calcium Level 9.1 Total Bilirubin 0.5 Aspartate Amino Transf (AST/SGOT) 33 Alanine Aminotransferase (ALT/SGPT) 42 Alkaline Phosphatase 74 Total Protein 8.0 Albumin 3.7 Globulin 4.3 Albumin/Globulin Ratio 0.9 L Lipase 32 Chemistry Comments Urine Specimen Description Cln catch midstream Urine Color Yellow Urine Clarity Cloudy Urine pH 6.0 Urine Specific [place] 1.025 Urine Protein 100 H Urine Glucose (UA) Negative Urine Ketones Negative Urine Occult Blood Moderate H Urine Nitrite Positive H Urine Bilirubin Negative Urine Urobilinogen 0.2 Urine Leukocyte Esterase Large H Urine RBC 10-20 Urine WBC Tntc H Urine Squamous Epithelial Cells None seen Urine Bacteria 4+ Urine Culture Indicated Indicated Volume Urine Centrifuged 10 ml Urine Comment White Blood Count 10.7 Red Blood Count 4.73 Hemoglobin 14.5 Hematocrit 42.9 Mean Corpuscular Volume 90.7 Mean Corpuscular Hemoglobin 30.6 Mean Corpuscular Hemoglobin Concent 33.8 Red Cell Distribution Width 14.2 Platelet Count 149 Mean Platelet Volume 8.9 Neutrophils (%) (Auto) 74.4 Lymphocytes (%) (Auto) 16.0 L Monocytes (%) (Auto) 8.1 Eosinophils (%) (Auto) 1.0 Basophils (%) (Auto) 0.5 Neutrophils # (Auto) 8.0 H Lymphocytes # (Auto) 1.7 Monocytes # (Auto) 0.9 Eosinophils # (Auto) 0.1 Basophils # (Auto) 0.1 Medical Decision Making Findings Patient presented to the emergency room for evaluation of dysuria. Differentials include but are not limited to urinary tract infection, dehydration, interstitial cystitis, yeast infection therefore labs ordered. La bs reassuring for no elevation of white blood cell count or kidney injury but she does have a marked urinary tract infection. Antibiotics initiated. ER precautions discussed. Very small amount of blood seen on urinalysis and I have low suspicion for kidney stone. Departure Disposition: HOME / SELF CARE / HOMELESS Impression: Primary Impression: Acute urinary tract infection Condition: Stable Discharge Instructions: Urinary Tract Infection, Adult Referrals: NO PRIMARY CARE PROVIDER (PCP) Prescriptions Cephalexin*Monohydrate* (Keflex*) 500 Mg Capsule 1 CAP PO Q12H for 10 Days, #20 CAP Prov: CHEPE CHA MD 04/01/25 Education Educated: Patient Educated regarding: diagnosis, treatment, need for follow up Signature Scribe Signature: No scribe Attestation: The note accurately reflects work and decisions made by me.Chepe Cha MD 04/01/25 03:40 CHEPE CHA MD Apr 01, 2025 02:41
[2025-04-01 02:51] LABS: LEUKOCYTE ESTERASE ,URINE LARGE (Neg); NITRITES, URINE POSITIVE (Neg); OCCULT BLOOD,URINE MODERATE (Neg)
[2025-04-01 03:08] LABS: UA COLLECTION TYPE CLN CATCH MIDSTREAM
[2025-04-01 03:16] LABS: SQUAMOUS EPITHELIAL CELL,UR NONE SEEN /LPF (FEW)
[2025-04-01 03:28] LABS: MEAN PLATELET VOLUME 8.9 FL (7.4-10.4); RED CELL DISTRIBUTION WIDTH 14.2 % (11.5-14.5)
[2025-04-01] MEDS ORDERED: CEPH-585 PO (03:40)
[2025-04-01] MEDS: CefTRIAXone 1000mg IM Kit (w/lidocaine diluent) IM ONE (03:50)
[2025-04-01 03:58] VITALS: BP 134/78; PULSE 74; RESP 17; O2SAT 99
== END 2025-04-01 03:54 | disposition home or self-care (01) ==
LOC: ER 00:57
DX: N39.0 Urinary tract infection, site not specified (principal); Z88.1 Allergy status to other antibiotic agents; Z88.2 Allergy status to sulfonamides
CPT/HCPCS: 36415; 80053; 81001; 83690; 85025; 87088; 87186; 96372; 99283; J0696; 87077